=== PATIENT | male | born 1975 | race Hispanic/Latino ===

== ENCOUNTER 2023-04-26 00:12 | Emergency (ER) | payer BC ==
[~2023-04-26] VITALS: Ht 175.3 cm; Wt 100.7 kg
[2023-04-26 01:51] VITALS: PULSE 80; RESP 18
[2023-04-26] MEDS ORDERED: KETOROLAC 60 MG VIAL (30MG/ML) IM ONE (02:00)
[2023-04-26] MEDS ORDERED: ALBUTEROL 0.083% 2.5 MG/3 ML INH IH ONE (02:00)
[2023-04-26] MEDS ORDERED: AUD IH (02:58)
[2023-04-26] MEDS ORDERED: CEPH500B PO (02:58)
[2023-04-26 03:19] VITALS: BP 112/79; PULSE 89; RESP 16; O2SAT 100
== END 2023-04-26 03:21 | disposition home or self-care (01) ==
LOC: EDH 00:12
DX: T59.811A Toxic effect of smoke, accidental (unintentional), initial encounter (principal); T23.021A Burn of unspecified degree of single right finger (nail) except thumb, initial encounter; X08.8XXA Exposure to other specified smoke, fire and flames, initial encounter; Y93.89 Activity, other specified; Y92.89 Other specified places as the place of occurrence of the external cause; Y99.8 Other external cause status
CPT/HCPCS: 99283; 96372; 94640; J1885